=== PATIENT | male | born 1980 | race Two or more races ===

== ENCOUNTER 2022-02-02 10:11 | Outpatient (CLI) | payer OTHER | END 2022-02-02 10:27 | disposition home or self-care (01) | LOC: MRI 10:11 | PROVIDERS: ATTEND General Practice | DX: S96.921A Laceration of unspecified muscle and tendon at ankle and foot level, right foot, initial encounter (principal); M25.551 Pain in right hip; S93.401A Sprain of unspecified ligament of right ankle, initial encounter | CPT/HCPCS: 73721 ==

== ENCOUNTER 2022-09-09 20:13 | Emergency (ER) | payer OTHER ==
[~2022-09-09] VITALS: Ht 162.6 cm; Wt 73.9 kg
[2022-09-09] MEDS ORDERED: TIVORBEX20 MG PO (21:19)
== END 2022-09-09 22:55 | disposition home or self-care (01) ==
LOC: ER 20:13
DX: S01.81XA Laceration without foreign body of other part of head, initial encounter (principal); X99.0XXA Assault by sharp glass, initial encounter; Y93.89 Activity, other specified; Y92.89 Other specified places as the place of occurrence of the external cause; Y99.9 Unspecified external cause status; Z88.2 Allergy status to sulfonamides

== ENCOUNTER 2022-09-19 20:22 | Emergency (ER) | payer OTHER ==
[~2022-09-19] VITALS: Ht 152.4 cm; Wt 75.3 kg
[~2022-09-19 20:22] MED LIST: TIVORBEX20 MG PO
== END 2022-09-19 20:56 | disposition home or self-care (01) ==
LOC: ER 20:22
DX: T88.8XXA Other specified complications of surgical and medical care, not elsewhere classified, initial encounter (principal); R23.9 Unspecified skin changes